=== PATIENT | female | born 1960 | race Caucasian/White ===

== ENCOUNTER → 2023-08-11 12:11 | Outpatient (REF) | payer BC, SELFPAY | LOC: DHCBC/DCA 12:11 | PROVIDERS: ATTENDING PHYSICIAN Internal Medicine Cardiovascular Disease; FAMILY PHYSICIAN Nurse Practitioner | DX: R94.31 Abnormal electrocardiogram [ECG] [EKG] (principal); I25.10 Atherosclerotic heart disease of native coronary artery without angina pectoris; I10 Essential (primary) hypertension | CPT/HCPCS: 78452; 93017; A9500; J2785 ==

== ENCOUNTER → 2023-08-16 11:08 | Outpatient (REF) | payer BC, SELFPAY | LOC: DHCBS HW 11:08 | PROVIDERS: ATTENDING PHYSICIAN Internal Medicine Cardiovascular Disease; FAMILY PHYSICIAN Nurse Practitioner | DX: R94.31 Abnormal electrocardiogram [ECG] [EKG] (principal); I25.10 Atherosclerotic heart disease of native coronary artery without angina pectoris; I10 Essential (primary) hypertension | CPT/HCPCS: 93306 ==

== ENCOUNTER 2023-09-01 06:03 | Inpatient (IN) | payer BC, SELFPAY ==
--- NOTE | 2023-07-27 13:14 | CM ---
Patient is scheduled for an elective R TKR on 09/01/23. Spoke with patient prior to surgery via telephone. Introduced role of Orthopedic Navigator. Patient reports that she lives alone in a two story home. There is a flight of steps to the second
floor. She currently functions independently and occasionally uses a cane for long distances. She also has a rolling walker. She has never had VN services. PCP is Mabel Ferris.
Discussed orthopedic program and post surgical plans. Reviewed anticipated length of stay and that goal is for her to return home at discharge. Also reviewed outpatient PT. Patient is in agreement with tentative plan and will go directly to
outpatient PT at [facility]. She will be staying with a friend for a week. Her friend's home is one floor with four (2-2) steps to enter.
Patient will complete online education.
Plan: Orthopedic Navigator will remain available to assist with the care of patient and will reassess discharge needs after surgery.
[2023-08-10 12:58] VITALS: BMI 44.2
[2023-08-10 14:32] LABS: Hemoglobin 13.3 g/dL (12.0-16.0); Mean Corp Hgb Conc. 35.9 g/dL (33.0-37.0); Mean Corpuscular Hgb 29.6 pg (27.0-31.0); Mean Corpuscular Volume 82.2 fL (81.0-99.0); Mean Platelet Volume 9.9 fL (7.4-10.4); Platelet Count 482 10^3/uL (130-400); Red Cell Dist. Width 13.1 % (11.5-14.5); White Blood Cell Count 16.7 10^3/uL (4.8-10.8)
[2023-08-10 14:50] VITALS: BMI 44.2
[2023-08-10 14:51] LABS: ALT (SGPT) 15 U/L (0-35); AST (SGOT) 19 U/L (14-36); Albumin 4.4 g/dl (3.5-5.0); Alkaline Phosphatase 100 U/L (38-126); Blood Urea Nitrogen 14 mg/dl (7-17); Calcium 9.7 mg/dl (8.4-10.2); Carbon Dioxide 29 mmol/L (22-30); Chloride 92 mmol/L (98-107); Estimated Creatinine Clearance 121 ml/min; Glucose 129 mg/dl (70-99); Sodium 135 mmol/L (135-145); Total Bilirubin 1.9 mg/dl (0.2-1.3); Total Protein 7.2 g/dl (6.3-8.2); eGFR > 60.00
[2023-08-11 08:44] LABS: Glycohemoglobin (HgbA1c) 6.6 % (4.0-5.6)
[2023-09-01] VITALS (18 sets, daily range): BP systolic 104–143; BP diastolic 63–80; PULSE 80; O2SAT 93; BMI 44.2
[2023-09-01 06:41] LABS: Glucose - Point of Care 168 mg/dl (70-99)
[2023-09-01] MEDS: TYLENOL 650 MG PO ×4 (06:45→21:27)
[2023-09-01] MEDS: BACTROBAN NASAL 1 GRAM NASAL (06:46)
[2023-09-01] MEDS: NORMOSOL-R 1000 IV ×2 (06:46→11:18)
[2023-09-01] MEDS: CELEBREX 200 MG PO (06:46)
[2023-09-01 09:53] LABS: Glucose - Point of Care 212 mg/dl (70-99)
[2023-09-01] MEDS: TORADOL 10 MG IV (10:32)
[2023-09-01] MEDS: ROXICODONE 5 MG PO ×3 (10:33→21:22)
[2023-09-01] MEDS: NOVOLOG vial 2 UNITS SC (10:36)
--- NOTE | 2023-09-01 12:29 | OR.RPT ---
Operative Report
Operative Report
Orthopaedic Surgery Operative Note
DATE OF OPERATION: 09/01/2023
PREOPERATIVE DIAGNOSES: Osteoarthritis, right knee.
POSTOPERATIVE DIAGNOSES: Osteoarthritis, right knee.
OPERATION PERFORMED:
1) Right total knee arthroplasty (CPT 26777 with 22 modifier)
2) Intraosseous administration of analgesic (CPT 16674)
SURGEON: Dean Light MD
ASSISTANTS: Clarke Vernon PA-C who helped with patient and limb positioning and retraction
ANESTHESIA: Spinal by anesthesia plus intraoperative interosseous analgesic infusion by Dr. Light
COMPLICATIONS: None.
ESTIMATED BLOOD LOSS: 20mL
DRAINS: None
TOURNIQUET TIME: 53 minutes.
IMPLANTS:
- Odilon Persona CR Femur, size 8
- Odilon Persona tibia base plate, size E
- Odilon Persona ultracongruent articular surface, 10 mm
- Odilon Persona tibial stem
- All-polyethylene patellar component, size 32
- DJO Lenox bone cement
INDICATIONS: The patient presented to my office with debilitating right knee pain due to osteoarthritis. We reviewed the natural history of this problem, as well as the risks, benefits, and alternatives of various treatment options. The patient
exhausted all nonoperative treatment options and wished to proceed with knee replacement surgery. The patient understood the risks which included, but were not limited to, bleeding, infection, failure to relieve pain, more pain than preop, damage to
blood vessels and nerves, need for reoperation, mechanical failure of the implants, wound healing problems, stiffness, instability, blood clot, pulmonary embolism, myocardial infarction, pneumonia, arrhythmia, CVA, and . The patient accepted
these risks and wished to proceed. All questions were answered, and informed consent was obtained.
PROCEDURE IN DETAIL: The patient was identified in the preoperative holding area. The right knee was identified as the operative site. The patient was taken in the operating room and placed in a supine position on the operating table. Spinal
anesthesia was performed. IV antibiotics and tranexamic acid were administered. An SCD was placed on the left lower extremity. A well-padded tourniquet was placed on the proximal thigh. All bony prominences were well padded. The right lower
extremity was prepped and draped in the usual sterile fashion.
We performed a surgical time-out. An interarticular block was performed with local anesthetic with epinephrine. I performed interosseous administration of morphine-saline solution via a Jamshidi style intraosseous needle into the proximal medial
tibial metaphysis as described by Porfirio Elaine MD. This was performed to aid in pain control. The limb was exsanguinated with an Esmarch bandage, then the tourniquet was inflated to 250 mmHg. A midline skin incision was made followed by a medial
parapatellar arthrotomy. A subperiosteal peel was performed on the medial tibia. I excised part of the infrapatellar fat pad to improve our visualization as well as tissue over anterior femur. The patella was everted and the knee was flexed. I
excised the remnants of the anterior and posterior cruciate ligaments as well as tibial and femoral osteophytes with rongeurs.
The knee was flexed, and the extramedullary tibial cutting guide was aligned. Mitchell was aligned at neutral, rotation was centered on the tibial tubercle, and coronal alignment was aligned with the mechanical axis of the tibia and center of the ankle
joint. The cut height was 10mm off the lateral tibia joint surface. The guide was secured into place. The MCL and LCL were protected. The tibia surface was cut. The cut surface was inspected after removal to ensure appropriate height and slope based
on the preoperative plan. The cut was checked with a drop jonas. It was centered nicely at the ankle.
A drill was used to open the femoral canal. The intramedullary distal femoral cutting guide was inserted into the femur. This was set at 5 degrees +0. This was secured into place with three pins. The cut level was checked with an sachin wing. The
distal femur was cut through the cutting guide. The IM guide was reinserted to double check that the level of resection was flush and in appropriate alignment.
Rutherford�s line and the transepicondylar axis were marked on the femur. The femoral sizing guide was applied to the anterior femur. Pins were inserted, and the 4-in-1 cutting guide was applied and secured into place. The rotation was compared to
Lebron�s line, the transepicondylar axis, and the neutral tibia cut and was found to be appropriate. The width was checked and found to be appropriate and lateralized on the femur. The anterior, posterior, and chamfur cuts were made. A lamina
concierge was used to open the flexion gap, and posterior osteophytes were removed with a curved osteotome. The remnant medial and lateral meniscus were also removed. I prophylactically cauterized the lateral geniculate arteries. A 10mm spacer block
was applied to the flexion gap and was noted to be balanced medially and laterally. The knee was extended, and the block showed symmetric to extension and flexion gaps.
The tibia was exposed and sized. Rotation was set in line with the tibial tubercle and congruent with the femur. The trial was secured into place with two pins. The trial femur was impacted into place, and a trial articular surface was placed. The
knee was taken through range of motion and noted to be stable throughout the arc of motion without gaping or excess tension. In extension, a measured resection of the patella was performed. The patella was sized, and lug holes were drilled. A trial
patella component was applied, and it was noted to track centrally throughout the arc of motion without need for further releases.
The trials were removed. The tibia keel was prepared with the punch and the drill. The bone surfaces were irrigated with sterile saline and dried. The cement was mixed in a vacuum mixer. Cement gun was used to apply cement to the tibial surface and
the undersurface of the tibial implant. Cement was pressurized into the tibial canal and tibia surface. The tibial component was impacted into place. Excess cement was removed. Cement was applied to the femoral surface and the femoral component. The
femoral component was impacted into place, and excess cement removed. A trial articular surface was inserted, and the knee was extended while the cement polymerized. The tourniquet was let down, and meticulous hemostasis was achieved. Dilute
betadine was poured into the wound and allowed to soak for 3 minutes. The knee was irrigated with copious normal saline.
Once the cement was polymerized, the trial articular surface was removed. Any excess cement was removed. The knee was trialed, and the final articular surface was selected and inserted into the tibial locking mechanism. The knee was reduced. A fresh
drape was applied to the surgical field.
The arthrotomy was closed with 0-PDS. Once closed, an interarticular block was performed with local anesthetic with epi. The deep dermal layer was closed with 2-0 PDS, and the subcuticular skin was closed with 3-0 monocryl. A Dermabond Prineo
dressing was applied to the skin in full flexion. Once this was completely dry, a sterile waterproof dressing was applied.
The anesthesia team performed an adductor canal block in the OR. The patient awoke from anesthesia without any difficulties. The sponge and instrument counts were correct x2 at the end of the case.
Of note, 22 modifier was added for complexity due to BMI >40kg/m2 which added 20 additional minutes for positioning, exposure, and implanting the components.
Joey Light MD
--- NOTE | 2023-09-01 12:45 | PTCARENOTE ---
Arrived from PACU. Patient s/p R TKA. Hemodynamically stable.
[2023-09-01] MEDS: NOVOLOG FLEXPEN-MODERATE RESISTANCE SC (13:14)
[2023-09-01] MEDS: IMDUR (EXTENDED RELEASE) PO (13:14)
[2023-09-01] MEDS: VITAMIN D3 (cholecalciferol) PO (13:30)
[2023-09-01] MEDS: NEURONTIN PO (13:30)
[2023-09-01] MEDS: PREVACID PO (13:31)
[2023-09-01] MEDS: ZOLOFT PO (13:31)
--- NOTE | 2023-09-01 14:21 | W.PN.ORTHO ---
Today's Communication / Plan
-
D/c when clinically stable.
Assessment
.
Distal Motor Intact: Yes
Dressing:
Clean, dry and intact.
Assessment:
R knee OA s/p R TKA w/ Dr Light 09/01/23
DVT prophylaxis - ASA, b/l venous foot pumps
HTN - + parameters - monitor BP
Non-obstructive coronary artery disease and microvascular angina, on Isosorbide and Aspirin
PACs, asymptomatic
- Monitor on tele
- Continue ASA but at 325 mg dosing x4 weeks for blood clot prevention
Obstructive sleep apnea, compliant with CPAP (setting 11) - monitor O2
- IS
- Resume CPAP HS
[id number] diabetes with neuropathy, A1c 6.6 - monitor BS
- SSI
GERD - continue PPI therapy
Chronic constipation - add MOM HS to bowel regimen of Colace and Senna
Neuropathic pain - will add Gabapentin
Dyslipidemia
Left sided pleural effusion and pleurisy associated with pneumonia 2013
Chronic nausea secondary to Mounjaro
Remote migraines
Vertigo
Lumbar degenerative disc disease
Bilateral sacroiliitis
Psoriatic arthritis with chronic thrombocytosis
Anxiety
Chronic leukocytosis
Mild hyperbilirubinemia
Morbid obesity, BMI 44.1
Remote history of tobacco abuse
Plan
.
Surgery / Date: R TKA w/ Dr Light 09/01/23
DVT Prophylaxis: Aspirin
Activity:
Out of bed.
PT/OT
Discharge Plan: Home w/ Outpatient PT
Subjective
.
.:
Patient resting comfortably in bed.
R knee pain currently rated 2/10.
Denies any new significant complaints.
Vital Signs and Labs
.
Vital Signs and Labs:
Lab Results
08/10/23 12:34
08/10/23 12:34
Temp Pulse Resp BP Pulse Ox
98.5 F 79 18 128/65 92
09/01/23 09:40 09/01/23 10:15 09/01/23 10:15 09/01/23 10:15 09/01/23 10:15
Physical Exam
-
HEENT: No pallor, cyanosis, or jaundice. Throat clear.
NECK: Supple. No JVD.
RESPIRATORY: Lungs clear to auscultation.
CVS: S1, S2 normal. RRR.
ABDOMEN: Soft, non-tender. No distension. Morbid obesity.
EXTREMITIES: Strength equal, no calf pain with palpation/dorsiflexion. Calves soft.
BUSINESS CONSULT: AOx3. No focal deficits. mva operator grossly intact
[2023-09-01] MEDS: NEURONTIN 200 MG PO ×2 (14:51→21:24)
[2023-09-01] MEDS: ANCEF 5 IV (15:54)
[2023-09-01 16:15] LABS: Glucose - Point of Care 206 mg/dl (70-99)
[2023-09-01] MEDS: ASPIRIN 325 MG PO (17:30)
[2023-09-01] MEDS: NOVOLOG FLEXPEN-MODERATE RESISTANCE 3 UNITS SC (17:49)
[2023-09-01] MEDS: LIPITOR 40 MG PO (21:24)
[2023-09-01 21:26] LABS: Glucose - Point of Care 173 mg/dl (70-99)
[2023-09-01] MEDS: COZAAR 100 MG PO (21:26)
[2023-09-01] MEDS: SENOKOT 17.1999999999999993 MG PO (21:27)
[2023-09-01] MEDS: COLACE 100 MG PO (21:27)
[2023-09-01] MEDS: MILK OF MAGNESIA 30 ML PO (21:28)
[2023-09-02] MEDS: BACTROBAN 2% OINTMENT 1 APPLIC NASAL ×2 (00:07→08:10)
[2023-09-02] MEDS: TYLENOL 650 MG PO ×3 (00:07→11:47)
[2023-09-02] MEDS: ANCEF 5 IV (00:08)
[2023-09-02] MEDS: ROXICODONE 5 MG PO (02:48)
[2023-09-02 02:59] VITALS: BP 129/73
[2023-09-02] MEDS: TYLENOL PO (05:34)
[2023-09-02 07:00] VITALS: BP 134/85
[2023-09-02 07:33] LABS: Glucose - Point of Care 179 mg/dl (70-99)
[2023-09-02] MEDS: CELEBREX 200 MG PO (08:07)
[2023-09-02] MEDS: ZOLOFT 25 MG PO (08:08)
[2023-09-02] MEDS: ROXICODONE 10 MG PO (08:08)
[2023-09-02] MEDS: PREVACID 30 MG PO (08:08)
[2023-09-02] MEDS: IMDUR (EXTENDED RELEASE) 60 MG PO (08:08)
[2023-09-02] MEDS: VITAMIN D3 (cholecalciferol) 50 MCG PO (08:08)
[2023-09-02] MEDS: SENOKOT 17.1999999999999993 MG PO (08:09)
[2023-09-02] MEDS: ASPIRIN 325 MG PO (08:09)
[2023-09-02] MEDS: NEURONTIN 200 MG PO (08:09)
[2023-09-02] MEDS: NOVOLOG FLEXPEN-MODERATE RESISTANCE 1 UNITS SC (08:09)
[2023-09-02] MEDS: COLACE 100 MG PO (08:09)
--- NOTE | 2023-09-02 08:37 | CM ---
Addendum entered by Brittany Michael 09/02/23 11:14:
Patient did well with PT and OT. She has no concerns about going home and has updated her friend.
Addendum entered by Brittany Michael 09/02/23 08:42:
Correction to below: Patient will use [facility] for discharge prescriptions.
Original Note:
Reviewed chart and held rounds with PT, OT and nursing. Patient admitted as planned for elective R TKR. Met with patient at bedside. Confirmed information previously obtained for assessment. Also discussed discharge plans. The plan is for patient to
go to her friend's home at discharge. She will be staying there for a week. Patient will go directly to outpatient PT and will go to [facility]. She has an appointment scheduled for Tuesday, 09/04. Reviewed need to schedule two week follow up in .
[facility]re's office
Patient has a rolling walker, cane and raised toilet seat.
She will use [facility] pharmacy for discharge prescriptions.
--- NOTE | 2023-09-02 09:00 | W.PN.ORTHO ---
Today's Communication / Plan
-
Monitor pain. Consider muscle relaxant if indicated.
Await PT and OT recs.
D/c later today if remaining clinically stable.
Assessment
.
Distal Motor Intact: Yes
Dressing:
Clean, dry and intact.
Assessment:
R knee OA s/p R TKA w/ Dr Light 09/01/23
DVT prophylaxis - ASA, b/l venous foot pumps
HTN - + parameters - BPs stable
Non-obstructive coronary artery disease and microvascular angina, on Isosorbide and Aspirin
PACs, asymptomatic
- Maintaining NSR on tele
- Continue ASA but at 325 mg dosing x4 weeks for blood clot prevention
Obstructive sleep apnea, compliant with CPAP (setting 11) - O2 stable on RA
- IS
- Resumed CPAP HS
[id number] diabetes with neuropathy, A1c 6.6 - BS readings elevated post-op due to surgical stress, IV Decadron in OR, and holding of weekly Mounjaro for 1 week pre-op
- BS readings improving, however, w/ SSI AC. May resume Mounjaro as soon as she is d/c.
GERD - continue PPI therapy
Chronic constipation - added MOM HS to bowel regimen of Colace and Senna
- Switch MOM to Miralax upon d/c per pt preference
Neuropathic pain - added Gabapentin
Dyslipidemia
Left sided pleural effusion and pleurisy associated with pneumonia 2013
Chronic nausea secondary to Mounjaro
Remote migraines
Vertigo
Lumbar degenerative disc disease
Bilateral sacroiliitis
Psoriatic arthritis with chronic thrombocytosis
Anxiety
Chronic leukocytosis
Mild hyperbilirubinemia
Morbid obesity, BMI 44.1
Remote history of tobacco abuse
Plan
.
Surgery / Date: R TKA w/ Dr Light 09/01/23
DVT Prophylaxis: Aspirin
Activity:
Out of bed.
PT/OT
Discharge Plan: Home w/ Outpatient PT
Subjective
.
.:
Patient examined resting in her chair.
R knee pain 02/22 currently but she was medicated within 10 minutes of my arrival.
Denies any other new significant complaints.
Eager for potential d/c today.
Vital Signs and Labs
.
Vital Signs and Labs:
Lab Results
08/10/23 12:34
08/10/23 12:34
Temp Pulse Resp BP Pulse Ox
97.9 F 67 18 134/85 96
09/02/23 07:00 09/02/23 07:00 09/02/23 07:00 09/02/23 08:11 09/02/23 07:00
Non-invasive Hgb result: 12.2
Physical Exam
-
HEENT: No pallor, cyanosis, or jaundice. Throat clear.
NECK: Supple. No JVD.
RESPIRATORY: Lungs clear to auscultation.
CVS: S1, S2 normal. RRR.�
ABDOMEN: Soft, non-tender. No distension.
EXTREMITIES: Expected post-surgical R knee edema. Strength equal, no calf pain with palpation/dorsiflexion. Calves soft.
HEALTHCARE PROF: AOx3. No focal deficits. electrocardiograph operator grossly intact
[2023-09-02] MEDS: LIDOCAINE 4% PATCH 2 PATCH TOPICAL (10:14)
[2023-09-02 11:00] VITALS: BP 120/65
--- NOTE | 2023-09-02 11:22 | W.DS.TRANS ---
DC Summary - Security Systems Engineer
-
Discharge Instructions:
Discharge Diagnosis/Procedures R knee OA s/p R TKA w/ Dr Light 09/01/23
Diet Diabetic, Carb Controlled
Activity As tolerated,With Walker
Driving Restrictions Not until seen by your Dr
Bathing Restrictions OK to Shower
Other Services PT
Wound Care Leave dressing on until seen by surgeon's office
for follow-up in 2 weeks.
Instructions:
Stand-Alone Forms: Total Hip/Knee Replacement D/C
Changes to Home Medications: Yes
Discharge Medications:
DC Medications w/original date entered in [facility]
isosorbide mononitrate 30 mg tablet,extended release 24 hr 60 mg PO DAILY Heart Disease/Condition 09/25/13
sertraline 25 mg tablet 25 mg PO DAILY depression/anxiety 08/04/23
tirzepatide 7.5 mg/0.5 mL subcutaneous pen injector (Mounjaro) 7.5 mg SC TH weight loss 08/04/23
atorvastatin 40 mg tablet 40 mg PO HS High Cholesterol 08/10/23
cholecalciferol (vitamin D3) 50 mcg (2,000 unit) tablet 50 mcg PO DAILY Supplement 08/10/23
lansoprazole 30 mg capsule,delayed release 30 mg PO DAILY Gastrointestinal Issue 08/10/23
mupirocin 2 % topical ointment 1 applic intranasal BID #1 tube 08/10/23
acetaminophen 500 mg tablet (Tylenol Extra Strength) 1,000 mg (2 x 500 mg) PO Q6H #60 tabs 09/02/23
amlodipine 10 mg tablet 10 mg PO DAILY #0 tabs 09/02/23
aspirin 325 mg tablet 325 mg PO DAILY #30 tabs 09/02/23
baclofen 10 mg tablet 10 mg PO BID PRN muscle spasms #10 tabs 09/02/23
celecoxib 200 mg capsule 200 mg PO DAILY #30 caps 09/02/23
docusate sodium 100 mg capsule 100 mg PO BID #30 caps 09/02/23
gabapentin 100 mg capsule 200 mg (2 x 100 mg) PO TID neuropathic pain #30 caps 09/02/23
hydrochlorothiazide 25 mg tablet 25 mg PO DAILY #0 tabs 09/02/23
lidocaine 4 % topical patch 2 patch topical DAILY #30 ea 09/02/23
losartan 100 mg tablet (Cozaar) 100 mg PO HS #0 tabs 09/02/23
ondansetron HCl 4 mg tablet 4 mg PO Q6H PRN nausea and vomiting #30 tabs 09/02/23
oxycodone 5 mg tablet 5 - 10 mg (1 - 2 x 5 mg) PO Q4H PRN moderate-severe pain #40 tabs 09/02/23
polyethylene glycol 3350 17 gram oral powder packet (Miralax) 17 g PO DAILY #30 ea 09/02/23
sennosides 8.6 mg tablet (Senna Laxative) 17.2 mg (2 x 8.6 mg) PO BID #30 tabs 09/02/23
Home Medication Changes
acetaminophen 500 mg tablet (Tylenol Extra Strength) 1,000 mg (2 x 500 mg) PO Q6H #60 tabs 09/02/23
aspirin 325 mg tablet 325 mg PO DAILY #30 tabs 09/02/23
baclofen 10 mg tablet 10 mg PO BID PRN muscle spasms #10 tabs 09/02/23
celecoxib 200 mg capsule 200 mg PO DAILY #30 caps 09/02/23
docusate sodium 100 mg capsule 100 mg PO BID #30 caps 09/02/23
gabapentin 100 mg capsule 200 mg (2 x 100 mg) PO TID neuropathic pain #30 caps 09/02/23
lidocaine 4 % topical patch 2 patch topical DAILY #30 ea 09/02/23
ondansetron HCl 4 mg tablet 4 mg PO Q6H PRN nausea and vomiting #30 tabs 09/02/23
oxycodone 5 mg tablet 5 - 10 mg (1 - 2 x 5 mg) PO Q4H PRN moderate-severe pain #40 tabs 09/02/23
polyethylene glycol 3350 17 gram oral powder packet (Miralax) 17 g PO DAILY #30 ea 09/02/23
sennosides 8.6 mg tablet (Senna Laxative) 17.2 mg (2 x 8.6 mg) PO BID #30 tabs 09/02/23
Pending Results: No
[2023-09-02] MEDS: LIORESAL 10 MG PO (11:46)
== END 2023-09-02 13:11 | disposition home or self-care (01) | DRG 470 ==
LOC: 2 SOUTH 06:03
PROVIDERS: ADMITTING PHYSICIAN Orthopaedic Surgery; FAMILY PHYSICIAN Nurse Practitioner
PROC: 0SRC0J9 Replacement of Right Knee Joint with Synthetic Substitute, Cemented, Open Approach (ICD-10-PCS; 2023-09-01)
DX: M17.11 Unilateral primary osteoarthritis, right knee (principal); Z68.41 Body mass index [BMI] 40.0-44.9, adult; E66.01 Morbid (severe) obesity due to excess calories; I10 Essential (primary) hypertension; G47.33 Obstructive sleep apnea (adult) (pediatric); K21.9 Gastro-esophageal reflux disease without esophagitis; E11.40 Type 2 diabetes mellitus with diabetic neuropathy, unspecified; I49.1 Atrial premature depolarization
CPT/HCPCS: 36415; 73560; 80053; 82962; 83036; 85027; 87070; 97110; 97116; 97162; 97166; 97530; 97535; C1713; C1776

== ENCOUNTER → 2024-03-19 11:54 | Outpatient (REF) | payer BC, SELFPAY | LOC: HWWDC 11:54 | PROVIDERS: ATTENDING PHYSICIAN Obstetrics & Gynecology | DX: Z12.31 Encounter for screening mammogram for malignant neoplasm of breast (principal) | CPT/HCPCS: 77063; 77067 ==